=== PATIENT | male | born 1960 | race American Indian/Alaskan Native ===

== ENCOUNTER 2017-12-21 17:21 | Emergency (ER) | payer SELFPAY ==
--- NOTE | 2017-12-21 19:14 | XRay Report ---
FINAL REPORT PROCEDURE: Right shoulder. TECHNIQUE: Three views. HISTORY: Deformity, trauma, shoulder pain. COMPARISON: No prior studies are available for comparison. FINDINGS: The bones appear intact without fracture or dislocation. There is elevation of the lateral end of the clavicle with respect to the acromion. The findings are consistent with a complete shoulder separation. The soft tissues are unremarkable. IMPRESSION: Right shoulder separation.
[2017-12-21] MEDS ORDERED: NORCO 5/325 PO ONE (21:32)
[2017-12-21] MEDS ORDERED: MOTRIN PO ONE (21:32)
--- NOTE | 2017-12-21 21:38 | Emergency Department Report ---
HPI - General Chief Complaint: Shoulder Injury Time Seen by Provider: 12/21/17 21:24 - HPI HPI: Room 36 The patient is a 57-year-old male presenting with chief complaint right shoulder pain after fall. The patient states 16:00 today he fell while trying to catch a football landing on his right shoulder. Patient denies loss of consciousness but states she's had pain in the right shoulder since the fall. Patient gets his pain score 3-4/10. Patient denies any other complaints Location: Right shoulder Duration: [See above] Quality: Pain Severity: 4/10 Modifying factors: Movement increases pain Context: [see above] Mode of transportation: [not driving] ED Past Medical Hx - Past Medical History Previous Medical History?: No - Surgical History Past Surgical History?: No - Family History Family history: no significant - Social History Smoking Status: Never Smoker Substance Use Type: None - Medications Home Medications: Home Medications Medication Instructions Recorded Confirmed Last Taken Type HYDROcodone/APAP 5-325 [Cook 1 - 2 each PO Q6HR PRN #20 tablet 12/21/17 Unknown Rx 5/325] Ibuprofen [Motrin 800 MG tab] 800 mg PO Q8HR PRN #20 tablet 12/21/17 Unknown Rx ED Review of Systems ROS: Stated complaint: RT SHOULDER PAIN Other details as noted in HPI Constitutional: no symptoms reported Eyes: denies: eye pain ENT: denies: throat pain Respiratory: no symptoms reported Cardiovascular: denies: chest pain Endocrine: no symptoms reported Gastrointestinal: denies: abdominal pain Genitourinary: denies: dysuria Musculoskeletal: arthralgia, myalgia Neurological: denies: headache Physical Exam - Physical Exam Vital Signs: Vital Signs 12/21/17 17:50 Temperature 98.0 F Pulse Rate 68 Respiratory 16 Rate Blood Pressure 149/78 O2 Sat by Pulse 99 Oximetry Physical Exam: GENERAL: The patient is well-developed well-nourished male sitting in chair not appear to be in acute distress. [] HEENT: Normocephalic. Atraumatic. Extraocular motions are intact. Patient has moist mucous membranes. NECK: Supple. Trachea midline CHEST/LUNGS: Clear to auscultation. There is no respiratory distress noted. HEART/CARDIOVASCULAR: Regular. There is no tachycardia. There is no gallop rub or murmur. ABDOMEN: Abdomen is soft, nontender. Patient has normal bowel sounds. There is no abdominal distention. SKIN: There is no rash. There is no edema. There is no diaphoresis. NEURO: The patient is awake, alert, and oriented. The patient is cooperative. The patient has normal speech. Normal sensation of the right upper extremity MUSCULOSKELETAL: There is tenderness to palpation of the right AC joint. There is no skin tenting. There is decreased range of motion of the right shoulder secondary to pain ED Course Vital Signs 12/21/17 17:50 Temperature 98.0 F Pulse Rate 68 Respiratory 16 Rate Blood Pressure 149/78 O2 Sat by Pulse 99 Oximetry ED Medical Decision Making - Radiology Data Radiology results: report reviewed (right shoulder x-ray), image reviewed ( right shoulder x-ray) interpreted by me: Right shoulder x-ray-AC separation. No fracture seen. [facility] [address] [place] [address] XRay Report Signed Patient: MARCELA WISDOM MR#: [id number] : 1960 Acct:[id number] Age/Sex: 57 / M ADM Date: 12/21/17 Loc: ED Attending Dr: Ordering Physician: MIGUELANGEL CONDON MD Date of Service: 12/21/17 Procedure(s): XR shoulder 2+V RT Accession Number(s): [id number] cc: ED MD ROSEANNA Fluoro Time In Minutes: FINAL REPORT PROCEDURE: Right shoulder. TECHNIQUE: Three views. HISTORY: Deformity, trauma, shoulder pain. COMPARISON: No prior studies are available for comparison. FINDINGS: The bones appear intact without fracture or dislocation. There is elevation of the lateral end of the clavicle with respect to the acromion. The findings are consistent with a complete shoulder separation. The soft tissues are unremarkable. IMPRESSION: Right shoulder separation. Transcribed By: [facility] Dictated By: VIC SHULTZ MD Electronically Authenticated By: VIC SHULTZ MD Signed Date/Time: 12/21/171911 DD/ 11 TD/TT: 12/21/171911 - Differential Diagnosis shoulder dislocation, shoulder separation, shoulder fracture Critical care attestation.: If time is entered above; I have spent that time in minutes in the direct care of this critically ill patient, excluding procedure time. ED Disposition Clinical Impression: Acute pain of right shoulder, Separation of right acromioclavicular joint Disposition: DC-01 TO HOME OR SELFCARE Is pt being admited?: No Does the pt Need Aspirin: No Condition: Stable Instructions: Acromioclavicular Separation (ED) Additional Instructions: Return to the emergency department immediately should you develop worsening symptoms, fever, inability to tolerate food or liquid or any other concerns. Prescriptions: HYDROcodone/APAP 5-325 [Cook 5/325] 1 - 2 each PO Q6HR PRN #20 tablet PRN Reason: Pain Ibuprofen [Motrin 800 MG tab] 800 mg PO Q8HR PRN #20 tablet PRN Reason: Pain, Moderate (4-6) Referrals: PRIMARY CARE, [Primary Care Provider] - 3-5 Days MARCELA MEJIA MD [Staff Physician] - [facility] (Dr. Mejia is an orthopedic surgeon. Please follow up with him for further evaluation) Time of Disposition: 21:38
[2017-12-21 23:01] VITALS: BP 150/80
== END 2017-12-21 23:01 | disposition home or self-care (01) ==
LOC: ED 17:21
DX: S43.101A Unspecified dislocation of right acromioclavicular joint, initial encounter (principal); W18.30XA Fall on same level, unspecified, initial encounter; Y93.89 Activity, other specified; Y92.89 Other specified places as the place of occurrence of the external cause; Y99.8 Other external cause status